=== PATIENT | male | born 1955 | race Two or more races ===

== ENCOUNTER 2025-02-28 09:43 | Emergency (ER) | payer MEDICARE, OTHER ==
[~2025-02-28] VITALS: Ht 172.7 cm; Wt 70.7 kg
[2025-02-28 10:12] VITALS: BP 176/116; PULSE 105; RESP 18; TEMP 98.2; O2SAT 97
--- NOTE | 2025-02-28 10:28 | DVH ---
XY L WRIST 3+ VIEW XRAY, INDICATION: WRIST PAIN/FALL TECHNICAL DATA: Frontal , oblique, and lateral views were obtained of the left wrist. COMPARISON: None FINDINGS: There is a nondisplaced distal radius fracture. Joint spaces are maintained. Alignment is anatomic. Ulnar variance is neutral. Soft tissues are within normal limits. IMPRESSION: There is a nondisplaced distal radius fracture.
--- NOTE | 2025-02-28 11:02 | ED.PDOC ---
History of Present Illness HPI Comments 69M presents to the ER w/ prior MHx of HTN and the c/c of a fall. Pt reports that he was waking and tripped over his shoe laces and hit his head w/ having left wrist pain and a forehead abrasion. Social Hx of tobacco and occasional alcohol use, but denies substance use. Denies chills, fever, N/V/D, SOB, CP. No other associated symptoms, modifiers, recent injuries or sick contacts present at this time. Chief Complaint: Upper Extremity Time Seen by MD: 10:25 Reviewed Notes: Nurses Notes, Medications, Allergies Allergies: Coded Allergies: NO KNOWN ALLERGIES (Unverified , 02/28/25) Information Source: Patient Mode of Arrival: Ambulatory Severity: Moderate Timing: Minutes Duration: Since onset, Minutes Prehospital treatment: None Past Medical History PAST MEDICAL HISTORY: HTN Surgical History: Denies all surgeries Family History Family History: Reviewed,noncontributory to illness, Unknown Social History Smoker: Cigarettes Alcohol: Occasionally Drugs: Denies Drug Use Lives In: Home Constitutional: reports: others (wrist pain); denies: chills, diaphoresis, fatigue, fever, malaise, sweats, weakness EENTM: denies: blurred vision, double vision, ear bleeding, ear discharge, ear drainage, ear pain, ear ringing, eye pain, eye redness, hearing loss, mouth pain, mouth swelling, nasal discharge, nose bleeding, nose congestion, nose pain, photophobia, tearing, throat pain, throat swelling, voice changes, others Respiratory: denies: cough, hemoptysis, orthopnea, SOB at rest, shortness of breath, SOB with excertion, stridor, wheezing, others Cardiovascular: denies: chest pain, dizzy spells, diaphoresis, Dyspnea on exertion, edema, irregular heart beat, left arm pain, lightheadedness, palpit ations, PND, syncope, others Gastrointestinal: denies: abdomen distended, abdominal pain, blood streaked b owels, constipated, diarrhea, dysphagia, difficulty swallowing, hematemesis, melena, nausea, poor appetite, poor fluid intake, rectal bleeding, rectal pain, vomiting, others Genitourinary: denies: burning, dysuria, flank pain, frequency, hematuria, incontinence, penile discharge, penile sore, pain, testicle pain, testicle swelling, urgency, others Neurological: denies: dizziness, fainting, headache, left sided numbness, left sided weakness, numbness, paresthesia, pre-existing deficit, right sided numbness, right sided weakness, seizure, speech problems, tingling, tremors, weakness, others Musculoskeletal: denies: back pain, gout, joint pain, joint swelling, muscle pain, muscle stiffness, neck pain, others Integumetry: denies: bruises, change in color, change in hair/nails, dryness, laceration, lesions, lumps, rash, wounds, others Allergic/Immunocompromised: denies: Difficulty Healing, Frequent Infections, Hives, Itching, others Hematologic/Lymphatic: denies: anemia, blood clots, easy bleeding, easy bruisi ng, swollen glands, others Endocrine: denies: excessive hunger, excessive sweating, excessive thirst, exce ssive urination, flushing, intolerance to cold, intolerance to heat, unexplained weight gain, unexplained weight loss, others Psychiatric: denies: anxiety, bipolar disorder, depression, hopeless, panic disorder, schizophrenia, sleepless, suicidal, others All Other Systems: Reviewed and Negative Physical Exam General Appearance: Moderate Distress, Normal HEENT: Normal ENT Inspection, Pharynx Normal, TMs Normal Neck: Full Range of Motion, Non-Tender, Normal, Normal Inspection Respiratory: Chest Non-Tender, Lungs Clear, No Accessory Muscle Use, No Respiratory Distress, Normal Breath Sounds Cardiovascular: No Edema, No JVD, No Murmur, No Gallop, Normal Peripheral Pulses, Regular Rate/Rhythm Breast Exam: Deferred Gastrointestinal: No Organomegaly, Non Tender, No Pulsatile Mass, Normal Bowel Sounds, Soft Genitalia: Deferred Pelvic: Deferred Rectal: Deferred Extremities: Decreased range of motion (Left wrist), No calf tenderness, Normal capillary refill, Normal inspection, Non-tender, No pedal edema Musculoskeletal : Apperance: Normal Neurologic: Alert, elementary special education teacher II-XII nml as Tested, No Motor Deficits, Normal Affect, Normal Mood, No Sensory Deficits Cerebellar Function: Normal Reflexes: Normal Skin: Dry, Normal Color, Warm Peripheral Pulses: 3+ Radial (R), 3+ Radial (L) Lymphatic: No Adenopathy Was a procedure done? Was a procedure done?: No Differential Dx Considerations may include: Musculoskeletal pain Colles fracture X-Ray, Labs, Meds, VS Vital Signs Date Time Temp Pulse Resp B/P (MAP) Pulse Ox O2 Delivery O2 Flow Rate FiO2 02/28/25 10:12 105 18 97 Room Air 02/28/25 10:12 98.2 105 18 176/116 (136) 97 98.2 02/28/25 10:07 98.2 105 18 176/116 (136) 97 98.2 [place] [id number] Ph: [phone] DIAGNOSTIC IMAGING Diagnostic Imaging Report : [id number] Signed PATIENT: ALIZE GILES ACCT: [id number] UNIT: [id number] : 1955 LOC: ER ROOM / BED: / AGE / SEX: 69 / M ADM STATUS: REG ER SERVICE ORDERING PHYSICIAN: DAMI GORDON MD PROCEDURE(s): LWRI - L WRIST 3+ VIEW XRAY REASON: WRIST PAIN/FALL ORDER NUMBER(s): [id number], ACCESSION NUMBER(s): [id number] XY L WRIST 3+ VIEW XRAY, INDICATION: WRIST PAIN/FALL TECHNICAL DATA: Frontal , oblique, and lateral views were obtained of the left wrist. COMPARISON: None FINDINGS: There is a nondisplaced distal radius fracture. Joint spaces are maintained. Alignment is anatomic. Ulnar variance is neutral. Soft tissues are within normal limits. IMPRESSION: There is a nondisplaced distal radius fracture. ATED BY: CELSO JARA MD DICTATED DATE/TIME: 02/28/25 1026 SIGNED BY: CELSO JARA MD SIGNED DATE/TIME: 02/28/25 1026 CC: Patient alert. Status post fall. Vitals stable. Answering questions. He tried to catch his fall by extending his left hand. X-ray does show nondisplaced distal radius fracture. Placed in his splint. Able to move his right wrist without difficulty. He does have bruising on the scalp. Denies loss of consciousness. Does not want a CT of the head. Explained to the patient the nature of the examination. He does not want a CT. He said he has good. Placed in his splint. Has good pulses. Was given prescription of Motrin. Was told to follow up with his primary care physician. Was told to come back if there is any problem. Time of 1ST Reevaluation: 10:55 Reevaluation 1ST: Unchanged Patient Education/Counseling: Diagnosis, Treatment, Prognosis Family Education/Counseling: No Family Present Departure 1 Departure Time of Disposition: 12:08 Impression: Primary Impression: Colles' fracture Qualified Codes: S52.532A - Colles' fracture of left radius, initial encounter for closed fracture Disposition: 01 HOME / SELF CARE / HOMELESS Condition: Good e-Prescriptions Ibuprofen Micronized (MOTRIN TABLET) 600 Mg Tb 600 MG PO TID PRN for 5 Days, #15 TAB *Black box warning-NSAIDS can increase risk of SD & hypertension, GI irritation, ulceration, bleed, perferation. Do not use post cardiac surgery. Use short duration/lowest effective dose. Prov: DAMI GORDON MD 02/28/25 Discharged With: Self Critical Care Note Critical Care Time?: No Stability Stability form required: No Heart Score Heart Score: Heart Score Response (Comments) Value History N/A 0 EKG N/A 0 Age N/A 0 Risk Factors N/A 0 Troponin N/A 0 Total 0 I personally scribed for DAMI GORDON MD ([email or web address]) on 02/28/25 at 11:02. Electronically submitted by Darek Hernandez ([email or web address]). I personally scribed for DAMI GORDON MD ([email or web address]) on 02/28/25 at 11:23. Electronically submitted by Darek Hernandez ([email or web address]). DAMI GORDON MD February 28, 2025 11:02
[2025-02-28] MEDS ORDERED: IBU600T PO (12:09)
[2025-02-28] MEDS: HYDROcodone-ACET 10/325MG TAB PO ONE (12:24)
== END 2025-02-28 12:42 | disposition home or self-care (01) ==
LOC: ER 09:49
DX: S52.532A Colles' fracture of left radius, initial encounter for closed fracture (principal); S00.81XA Abrasion of other part of head, initial encounter; F17.210 Nicotine dependence, cigarettes, uncomplicated; I10 Essential (primary) hypertension; W18.09XA Striking against other object with subsequent fall, initial encounter; Y93.01 Activity, walking, marching and hiking; Y92.89 Other specified places as the place of occurrence of the external cause; Y99.8 Other external cause status
CPT/HCPCS: 29125; 73110